=== PATIENT | male | born 1990 | race African-American/Black ===

== ENCOUNTER 2024-07-05 08:07 | Emergency (ER) | payer MEDICAID ==
[~2024-07-05] VITALS: Ht 180.3 cm; Wt 93.9 kg
[2024-07-05 08:51] VITALS: BP 133/86; PULSE 63; RESP 16; TEMP 98.6; O2SAT 96
[2024-07-05 09:57] LABS: Urine Bacteria None Seen /hpf (None Seen)
[2024-07-05 11:37] LABS: Urine Blood Negative /uL (Negative); Urine Clarity Clear (Clear); Urine Color Yellow (Yellow); Urine Hyaline Cast MOD /lpf (0 - 2); Urine Mucus FEW (None Seen); Urine Protein, UAD 1+ (Negative); Urine Specific Gravity 1.036 (1.001-1.035); Urine Urobilinogen 2 mg/dL (Negative); Urine WBC 77 /hpf (0 - 3); Urine pH 5.5 (5.0-9.0)
[2024-07-05] MEDS ORDERED: BACDST PO (11:42)
[2024-07-05] MEDS: cefTRIAXone SOD 1,000 MG VL IM ONE (11:48)
[2024-07-06 12:07] LABS: Chlamydia Trachomatis, NAA Negative (Negative); Neisseria gonorrhoeae, NAA Negative (Negative)
== END 2024-07-05 11:42 | disposition home or self-care (01) ==
LOC: ER 08:07
DX: N30.90 Cystitis, unspecified without hematuria (principal)
CPT/HCPCS: 81001; 87491; 87591; 96372; 99283; J0696

== ENCOUNTER 2025-01-01 10:13 | Emergency (ER) | payer MEDICAID, OTHER ==
[~2025-01-01] VITALS: Ht 152.4 cm; Wt 103.4 kg
[~2025-01-01 10:13] MED LIST: BACDST PO
[2025-01-01 12:30] VITALS: BP 137/82; PULSE 75; RESP 20; TEMP 98.1; O2SAT 99
[2025-01-01] MEDS ORDERED: PROM1SOL4 PO (12:45)
[2025-01-01] MEDS ORDERED: AZIT-43 PO (12:45)
[2025-01-01] MEDS ORDERED: IBUP1TAB5 PO (12:45)
[2025-01-01] MEDS ORDERED: PSEU120T18 PO (12:45)
[2025-01-01] MEDS ORDERED: BENZ100C97 PO (12:45)
--- NOTE | 2025-01-01 12:46 | ED.PDOC ---
SOB-HPI HPI Comments Pleasant 34-year-old with a MHx that presents with URI symptoms x7 days. Complains of a nonproductive cough, nasal congestion and a sore throat. He has taken [id number] Tylenol Motrin with some improvement. Speaking in full sentences and denies chest pain shortness of breath Chief Complaint: Flu like Time Seen by MD: 10:27 Primary Care Provider: None Reviewed notes: Nurses Notes, Medications, Allergies Information Source: Patient Mode of Arrival: Ambulatory Social History Smoker: Non-Smoker Alcohol: Denies ETOH Use Drugs: Denies Drug Use All Other Systems: Reviewed and Negative (Per HPI) Physical Exam General Appearance: No Apparent Distress, Normal HEENT: Normal ENT Inspection, Pharynx Normal, TMs Normal Neck: Full Range of Motion, Non-Tender, Normal, Normal Inspection Respiratory: Chest Non-Tender, Lungs Clear, No Accessory Muscle Use, No Respiratory Distress, Normal Breath Sounds Cardiovascular: No Edema, No JVD, No Murmur, No Gallop, Normal Peripheral Pulses, Regular Rate/Rhythm Breast Exam: Deferred Gastrointestinal: No Organomegaly, Non Tender, No Pulsatile Mass, Normal Bowel Sounds, Soft Genitalia: Deferred Pelvic: Deferred Rectal: Deferred Extremities: No calf tenderness, Normal capillary refill, Normal inspection, Normal range of motion, Non-tender, No pedal edema Musculoskeletal : Apperance: Normal Neurologic: Alert, recovery advocate II-XII nml as Tested, No Motor Deficits, Normal Affect, Normal Mood, No Sensory Deficits Cerebellar Function: Normal Reflexes: Normal Skin: Dry, Normal Color, Warm Lymphatic: No Adenopathy Was a procedure done? Was a procedure done?: No Differential Dx Differential Diagnosis: Bronchitis, URI X-Ray, Labs, Meds, VS Vital Signs Date Time Temp Pulse Resp B/P (MAP) Pulse Ox O2 Delivery O2 Flow Rate FiO2 01/01/25 12:30 75 20 99 Room Air 01/01/25 12:30 98.1 75 20 137/82 (100) 99 98.1 01/01/25 10:26 Room Air* 0 21 01/01/25 10:26 97.6 81 17 135/94 (108) 97 X-Ray, Labs, Meds, VS Comment Consistent with URI. Agrees to empiric tx. Patient is stable for discharge at this time. External notes reviewed. Test results and diagnostic imaging interpreted. All diagnostic findings, discharge care, education and instructions provided Follow-up with PCP in 2 to 3 days Patient verbalized understanding and agreed to treatment plan Vital signs stable, afebrile, no acute distress noted Patient ambulatory with strong steady gait Advised to return precautions for any new or worsening symptoms, return to ER immediately for re-evaluation Patient is aware that the purpose of this visit was for an acute medical emergency requiring emergent stabilization. Chronic conditions, including malignancies have not been ruled out. Patient is instructed to follow up with PCP as directed and discharge instructions for continued care and workup. If unable to arrange follow-up, patient is to return to the emergency department for reassessment. Patient (parent or legal guardian if applicable) was given verbal and written discharge instructions and acknowledges understanding. Time of 1ST Reevaluation: 12:30 Reevaluation 1ST: Improved Patient Education/Counseling: Diagnosis, Treatment Family Education/Counseling: Diagnosis, Treatment Departure 1 Departure Time of Disposition: 12:44 Impression: Primary Impression: URI (upper respiratory infection) Qualified Codes: J06.9 - Acute upper respiratory infection, unspecified Disposition: 01 HOME / SELF CARE / HOMELESS Condition: Fair e-Prescriptions Ibuprofen Micronized (Ibuprofen) 600 Mg Tab 600 MG PO TIDWMEALS for 7 Days, #21 TAB 0 Refills Prov: BECKY ENGLISH NP 01/01/25 Pseudoephedrine-Guaifenesin (Mucinex D) 1 Tab Tab 1 TAB PO BID for 10 Days, #20 TAB 0 Refills Prov: BECKY ENGLISH NP 01/01/25 Benzonatate (Benzonatate) 100 Mg Cap 1 CAP PO TID for 10 Days, #30 CAP 0 Refills Prov: BECKY ENGLISH NP 01/01/25 Promethazine-Dm (Promethazine Dm 6.25-15 mg/5Ml) 1 Jennifer Jennifer 5 ML PO TID for 10 Days, #150 ML 0 Refills Prov: BECKY ENGLISH NP 01/01/25 Azithromycin (Azithromycin) 250 Mg Tab 250 MG PO DAILY MDD 500 for 5 Days, #6 TAB 0 Refills 2 TABLETS ORALLY ON DAY ONE, THEN 1 TABLET ORALLY DAILY FOR 4 DAYS Prov: BECKY ENGLISH NP 01/01/25 Critical Care Note Critical Care Time?: No Stability Stability form required: No Heart Score Heart Score: Heart Score Response (Comments) Value History N/A 0 EKG N/A 0 Age N/A 0 Risk Factors N/A 0 Troponin N/A 0 Total 0 BECKY ENGLISH SURVEYING OR SPATIAL SCIENCE TECHNICIAN Jan 01, 2025 12:46
== END 2025-01-01 12:53 | disposition home or self-care (01) ==
LOC: ER 10:13
DX: J06.9 Acute upper respiratory infection, unspecified (principal)

== ENCOUNTER 2025-01-22 13:38 | Emergency (ER) | payer MEDICAID, OTHER ==
[~2025-01-22] VITALS: Ht 167.6 cm; Wt 66.8 kg
[~2025-01-22 13:38] MED LIST changes: +AZIT-43 PO; +BENZ100C97 PO; +IBUP1TAB5 PO; +PROM1SOL4 PO; +PSEU120T18 PO
[2025-01-22 15:41] VITALS: BP 108/72; PULSE 68; RESP 20; TEMP 98.2; O2SAT 98
[2025-01-22] MEDS ORDERED: AUG875T PO (15:50)
[2025-01-22] MEDS ORDERED: ACET-1881 PO (15:50)
--- NOTE | 2025-01-22 15:50 | ED.PDOC ---
SOB-HPI HPI Comments BIB father for URI symptoms x 5 days No red flags Chief Complaint: Flu like Time Seen by MD: 14:21 Primary Care Provider: None Reviewed notes: Nurses Notes, Medications, Allergies Information Source: Patient Mode of Arrival: Ambulatory Social History Smoker: Non-Smoker Alcohol: Denies ETOH Use Drugs: Denies Drug Use All Other Systems: Reviewed and Negative (per hpi) Physical Exam General Appearance: No Apparent Distress, Normal HEENT: Normal ENT Inspection, Pharynx Normal, TMs Normal Neck: Full Range of Motion, Non-Tender, Normal, Normal Inspection Respiratory: Chest Non-Tender, Lungs Clear, No Accessory Muscle Use, No Respiratory Distress, Normal Breath Sounds Cardiovascular: No Edema, No JVD, No Murmur, No Gallop, Normal Peripheral Pulses, Regular Rate/Rhythm Breast Exam: Deferred Gastrointestinal: No Organomegaly, Non Tender, No Pulsatile Mass, Normal Bowel Sounds, Soft Genitalia: Deferred Pelvic: Deferred Rectal: Deferred Extremities: No calf tenderness, Normal capillary refill, Normal inspection, Normal range of motion, Non-tender, No pedal edema Musculoskeletal : Apperance: Normal Neurologic: Alert, blood bank technologist II-XII nml as Tested, No Motor Deficits, Normal Affect, Normal Mood, No Sensory Deficits Cerebellar Function: Normal Reflexes: Normal Skin: Dry, Normal Color, Warm Lymphatic: No Adenopathy Was a procedure done? Was a procedure done?: No Differential Dx Differential Diagnosis: URI X-Ray, Labs, Meds, VS Vital Signs Date Time Temp Pulse Resp B/P (MAP) Pulse Ox O2 Delivery O2 Flow Rate FiO2 01/22/25 15:41 68 20 98 Room Air 01/22/25 15:41 98.2 62 20 108/72 (84) 98 98.2 01/22/25 14:00 98.8 66 17 102/81 (88) 98 01/22/25 14:00 98 Room Air* 0 21 X-Ray, Labs, Meds, VS Comment History and physical consistent of URI Take medication as prescribed No concerns for pneumonia at this time however father agrees to empiric tx Discussed that cough can linger up to 6 weeks after viral URI ED precautions if cough does not alleviate or if cough worsens Supportive care and return precautions discussed Counseled viral infection and explained that antibiotics would not be helpful in resolving the illness sooner. Recommended vitamin C, rest, handwashing, and symptomatic care. Expect 2-week course with possibly of cough lingering up to 6 weeks. Nonpharmacological remedies for fluids has been recommended as well Time of 1ST Reevaluation: 15:39 Reevaluation 1ST: Improved Patient Education/Counseling: Diagnosis, Treatment Family Education/Counseling: Diagnosis, Treatment Departure 1 Departure Time of Disposition: 15:48 Impression: Primary Impression: Viral syndrome Disposition: HOME / SELF CARE / HOMELESS Condition: Stable e-Prescriptions Acetaminophen (Acetaminophen) 325 Mg Tab 325 MG PO Q6HP PRN for 10 Days, #40 TAB 0 Refills Prov: BECKY ENGLISH MAINTENANCE PORTER 01/22/25 Promethazine-Dm (Promethazine Dm 6.25-15 mg/5Ml) 1 Jennifer Jennifer 5 ML PO TID PRN for 10 Days, #150 ML 0 Refills Prov: BECKY ENGLISH MAINTENANCE PORTER 01/22/25 Amoxicillin & Pot Clavulanate (AUGMENTIN TABLET) 875 Mg Tb 875 MG PO BID for 7 Days, #14 TAB 0 Refills Prov: BECKY ENGLISH NP 01/22/25 Discharged With: Relative (Father) Critical Care Note Critical Care Time?: No Stability Stability form required: No Heart Score Heart Score: Heart Score Response (Comments) Value History N/A 0 EKG N/A 0 Age N/A 0 Risk Factors N/A 0 Troponin N/A 0 Total 0 BECKY ENGLISH NP Jan 22, 2025 15:50
== END 2025-01-22 16:14 | disposition home or self-care (01) ==
LOC: ER 13:38 → EDBD 13:38 → ER 16:13
DX: B34.9 Viral infection, unspecified (principal)